=== PATIENT | male | born 1985 | race Caucasian/White ===

== ENCOUNTER 2017-03-13 13:56 | Emergency (ER) | payer MEDICAID, OTHER ==
[~2017-03-13] VITALS: Wt 74.0 kg
[2017-03-13] MEDS ORDERED: HC30CR25 TOP (14:32)
[2017-03-13] MEDS ORDERED: PRED20TA PO (14:32)
--- NOTE | 2017-03-13 14:39 | ERA ---
ER Documentation Chief Complaint Date/Time DATE: 03/13/17 TIME: 14:34 Chief Complaint POSSIBLE ALLERGIC REACTION TO R HAND HPI This is an otherwise healthy 31-year-old male presenting with a chief complaint of rash 2 weeks. Patient states that the rash is pruritic and on his hands have come and gone. Patient has tried Clotrimazole with no relief. Patient also has had a chronic rash on his ankles and under the armpits. Denies fever, rapid progression of symptoms, recent antibiotic use, symptomatic close contacts , diabetes, pain, history of skin opening or by. Patients vaccination status is up to date. No recent travel. Nursing notes have been reviewed and are consistent with history given. ROS All systems reviewed and are negative except as per history of present illness. Medications Home Meds Active Scripts Hydrocortisone* Topical (Hydrocortisone* Topical) 2.5%-28.3 Gm Cream..g., 1 APPLIC TOP BID, #1 TUB Prov:JUANA NAQVI PA-C 03/13/17 Prednisone* (Prednisone*) 20 Mg Tab, 40 MG PO DAILY for 4 Days, TAB Prov:JUANA NAQVI PA-C 03/13/17 PMhx/Soc History of Surgery: No Anesthesia Reaction: No Hx Neurological Disorder: No Hx Respiratory Disorders: No Hx Cardiac Disorders: No Hx Psychiatric Problems: No Hx Miscellaneous Medical Probl: No Hx Alcohol Use: No Hx Substance Use: No Hx Tobacco Use: No Smoking Status: Never smoker Physical Exam Vitals Vital Signs Date Time Temp Pulse Resp B/P Pulse Ox O2 Delivery O2 Flow Rate FiO2 03/13/17 14:02 98.0 80 18 141/77 0 Physical Exam Const: Healthy-appearing. Well-nourished. Well-developed. No acute distress. Skin: [place] wheals on the hands bilaterally with mild swelling. Confide rash on the posterior ankles around the Achilles tendon bilaterally most consistent with psoriasis. Ext: No palpable cord. Normal movement of all extremities grossly observed. Neur: Awake, alert and oriented x3. Neurovascularly intact bilaterally. Oral: No oral edema visualized. Mucous membranes moist and pink. Head: Normocephalic, Atraumatic. Eyes: Non-injected; No discharge. EOMI and MARYBETH bilaterally. Ears: Normal External Ears, EACs clear, TM normal bilaterally without erythema. Nose: Normal external nose; no discharge, or sinus tenderness. Neck: No cervical lymphadenopathy, masses or goiter palpated. ~ No meningismus. Pulm: Good air movement in upper and lower respiratory tracts. No dyspnea, stridor, tripoding or drooling. Clear to auscultation bilaterally. Cardio: Regular rate and rhythm; No murmurs, gallops or rubs auscultated. No JVD grossly observed. No cyanosis. Capillary refill less than 2 seconds. Abd: Soft, non tender, non distended. No guarding, masses. Normal bowel sounds. MS: Normal motor strength, normal tone with gross examination. Back: No midline, flank or CVA tenderness. Psych: Normal Mood and Affect. Procedures/MDM 31-year-old otherwise healthy male presenting with a chief complaint of rash 2 weeks. Patient has an unknown trigger but symptoms and signs are most consistent with allergic reaction versus contact dermatitis. Patient also has another chronic rash on the ankles is most consistent with psoriasis. At this time of little suspicion for fungal or bacterial involvement as the patient has tried clotrimazole without improvement. I also have little suspicion for endangerment of the airway or cardiac involvement. Will go ahead and prescribe the patient oral prednisone 4 days and topical hydrocortisone. I have spoke with the patient regarding their condition and future management. They have verbally responded that they understand their status and treatment plan. The patients vitals are stable, and their current condition is appropriate for discharge. The patient will be given discharge instructions with return precautions. Departure Diagnosis: Primary Impression: Allergic reaction Qualified Code: T78.40XA - Allergic reaction, initial encounter Additional Impression: Contact dermatitis Qualified Code: L25.9 - Contact dermatitis, unspecified contact dermatitis type, unspecified trigger Condition: Stable Patient Instructions: Contact Dermatitis Additional Instructions: Shawn un seguimiento con hassan PCP dentro de los prximos 1-3 see para linda evaluaci n ms completa y linda posible derivacin a un especialista. Devuelva el departamento de emergencia inmediatamente si los sntomas empeoran o cambian. Si tiene alguna pregunta con respecto a los medicamentos, consulte con hassan farmac utico o con nosotros antes de salir. Si se producen reacciones adversas mientras christie colette medicamentos, suspenda el tratamiento y regrese inmediatamente al servicio de urgencias. [facility] colette medicamentos segn las indicaciones y complete el curso completo del tratamiento. JUANA NAQVI PA-C Mar 13, 2017 14:39
== END 2017-03-13 14:44 | disposition home or self-care (01) ==
LOC: FTE 13:56
DX: L23.9 Allergic contact dermatitis, unspecified cause (principal)
CPT/HCPCS: 99284

== ENCOUNTER 2018-01-17 16:07 | Emergency (ER) | END 2018-01-17 17:58 | disposition home or self-care (01) ==

== ENCOUNTER 2018-05-21 11:27 | Emergency (ER) | END 2018-05-21 14:07 | disposition home or self-care (01) ==

== ENCOUNTER 2018-10-02 09:29 | Inpatient (IN) | payer MEDICAID ==
[~2018-10-02] VITALS: Ht 175.3 cm; Wt 89.8 kg
[~2018-10-02 09:29] MED LIST: AMOX1TAB10 PO; HC30CR25 TOP; HYDR-4011 PO; IBUP-1542 PO; NAPR-985 PO; PRED20TA PO
[2018-10-02] MEDS ORDERED: LIDOCAINE 1% (MPF) 5 ML VIAL INFIL ONE (10:30)
[2018-10-02] MEDS ORDERED: CEFTRIAXONE 1 GM/50 ML (PMX) 50 ML IVPB ONE (13:30)
[2018-10-02] MEDS ORDERED: SOD CHLORIDE 0.9% 1,000 ML IV ONE (13:30)
[2018-10-02] MEDS ORDERED: VANCOMYCIN 1 GM (PMX) 250 ML IVPB ONE (13:30)
--- NOTE | 2018-10-02 14:27 | ERD ---
ER Documentation Chief Complaint Chief Complaint lt wrist pain HPI 33-year-old male presents for left forearm pain times 3 weeks. Patient states that he had a fall few weeks ago when he had left wrist and left ankle fracture which was casted. He subsequently developed left forearm swelling which was thought to be due to use of crutches. He however states that the swelling has not gone away. The left forearm is developing some erythema. Denies any fevers or chills. He states he has 6 out of 10 pain. ROS All systems reviewed and are negative except as per history of present illness. Medications Home Meds Active Scripts Ibuprofen* (Motrin*) 600 Mg Tab, 600 MG PO Q6, #30 TAB Prov:TANIYA HERNANDEZ PA-C 05/21/18 Naproxen* (Naprosyn*) 500 Mg Tablet, 500 MG PO BID PRN for PAIN AND/OR INFLAMMATION, #30 TAB Prov:BEE HOOVER PA-C 01/17/18 Hydrocodone/Acetaminophen ([place] 5-325 Tablet) 1 Each Tablet, 1 TAB PO Q6H PRN for PAIN, #7 TAB Prov:BEE HOOVER PA-C 01/17/18 Amoxicillin/Potassium Clav (Amox-Clav 875-125 mg Tablet) 875-125 mg Tab, 1 TAB PO BID for 10 Days, #20 TAB Prov:BEE HOOVER PA-C 01/17/18 Hydrocortisone* Topical (Hydrocortisone* Topical) 2.5%-28.3 Gm Cream..g., 1 APPLIC TOP BID, #1 TUB Prov:JUANA NAQVI PA-C 03/13/17 Prednisone* (Prednisone*) 20 Mg Tab, 40 MG PO DAILY for 4 Days, TAB Prov:JUANA NAQVI PA-C 03/13/17 Allergies Allergies: Coded Allergies: No Known Allergy (Unverified , 10/02/18) PMhx/Soc Medical and Surgical Hx: pt denies Medical Hx, pt denies Surgical Hx History of Surgery: No Anesthesia Reaction: No Hx Neurological Disorder: No Hx Respiratory Disorders: No Hx Cardiac Disorders: No Hx Psychiatric Problems: No Hx Miscellaneous Medical Probl: No Hx Alcohol Use: Yes (occassional) Hx Substance Use: No Hx Tobacco Use: No Smoking Status: Former smoker Physical Exam Vitals Vital Signs Date Temp Pulse Resp B/P (MAP) Pulse Ox O2 O2 Flow FiO2 Time Delivery Rate 10/02/18 98.3 83 18 167/96 98 09:31 (119) Physical Exam Const: No acute distress Neck: Full range of motion. No meningismus. Resp: Clear to auscultation bilaterally Cardio: Regular rate and rhythm, no murmurs, cap refills less than 2 seconds in all fingers of left hand Abd: Soft, non tender, non distended. Normal bowel sounds Skin: No petechiae or rashes Back: No midline or flank tenderness Ext: Left forearm mass about 2cm with erythema and underlying fluctuance Neur: Awake and alert, lateral upper extremity sensation intact, left hand sensation intact Psych: Normal Mood and Affect Result Diagram: 10/02/18 1334 10/02/18 1334 Results 24 hrs Laboratory Tests Test 10/02/18 13:34 White Blood Count 9.2 10^3/ul Red Blood Count 5.87 10^6/ul Hemoglobin 16.7 g/dl Hematocrit 49.5 % Mean Corpuscular Volume 84.3 fl Mean Corpuscular Hemoglobin 28.4 pg Mean Corpuscular Hemoglobin Concent 33.7 g/dl Red Cell Distribution Width 13.5 % Platelet Count 293 10^3/UL Mean Platelet Volume 10.7 fl Immature Granulocytes % 0.400 % Neutrophils % 48.5 % Lymphocytes % 41.1 % Monocytes % 8.8 % Eosinophils % 0.8 % Basophils % 0.4 % Nucleated Red Blood Cells % 0.0 /100WBC Immature Granulocytes # 0.040 10^3/ul Neutrophils # 4.5 10^3/ul Lymphocytes # 3.8 10^3/ul Monocytes # 0.8 10^3/ul Eosinophils # 0.1 10^3/ul Basophils # 0.0 10^3/ul Nucleated Red Blood Cells # 0.0 10^3/ul Sodium Level 142 mmol/L Potassium Level 4.1 mmol/L Chloride Level 98 mmol/L Carbon Dioxide Level 28 mmol/L Anion Gap 16 Blood Urea Nitrogen 13 mg/dl Creatinine 0.89 mg/dl Est Glomerular Filtrat Rate mL/min > 60 mL/min Glucose Level 94 mg/dl Calcium Level 10.0 mg/dl Total Bilirubin 0.3 mg/dl Direct Bilirubin 0.00 mg/dl Indirect Bilirubin 0.3 mg/dl Aspartate Amino Transf (AST/SGOT) 31 IU/L Alanine Aminotransferase (ALT/SGPT) 26 IU/L Alkaline Phosphatase 105 IU/L C-Reactive Protein < 0.5 mg/dl Total Protein 9.5 g/dl Albumin 5.0 g/dl Globulin 4.50 g/dl Albumin/Globulin Ratio 1.11 Current Medications Medications Dose Sig/Brianne Start Time Status Last (Trade) Ordered Route PRN Stop Time Admin Dose Reason Admin Lidocaine 5 ml ONCE ONCE 10/02/18 DC (Xylocaine INFIL 10:30 1% (Mpf)) 10/02/18 10:31 Ceftriaxone 50 ml @ ONCE ONCE 10/02/18 DC 10/02/18 Sodium 100 mls/hr IVPB 13:30 13:56 10/02/18 13:59 Vancomycin 250 ml @ ONCE ONCE 10/02/18 DC 10/02/18 HCl 125 mls/hr IVPB 13:30 14:29 10/02/18 15:29 Sodium 1,000 ml @ Q1H ONCE 10/02/18 DC 10/02/18 Chloride 1,000 mls/hr IV 13:30 13:57 10/02/18 14:29 Morphine 4 mg ONCE STAT 10/02/18 DC 10/02/18 Sulfate IV 14:40 15:17 (morphine) 10/02/18 14:41 Ondansetron 4 mg ONCE STAT 10/02/18 DC 10/02/18 HCl (Zofran IV 14:40 15:16 Inj) 10/02/18 14:41 Ondansetron 4 mg BRIDGE ORDER 10/02/18 HCl (Zofran PRN IV 15:30 Inj) NAUSEA/VOMITI 10/03/18 15:29 NG 650 mg ER BRIDGE 10/02/18 Acetaminophen PRN PO 15:30 (Tylenol .MILD PAIN 10/03/18 15:29 Tab) 1-3 OR TEMP Procedures/MDM Abscess Incision and Drainage with irrigation by me: Location: Left forearm Anesthesia: Local 1% Lidocaine Technique: Irrigated. Disrupted loculations w/ instrumentation Packing: None Complications: Neurovascularly intact post procedure Medical Decision Making: Differential diagnosis includes but not limited to left forearm abscess, osteomyelitis,contact dermatitis Patient appeared well on physical exam. Left forearm examination consistent with an abscess. Due to the size of the infection x-ray was ordered. The left forearm x-ray showed possibility of a bone infection versus abscess versus tumor CT of the forearm showed chronic osteomyelitis with radiocarpal joint effusion CBC: no e/o of systemic infection or severe anemia CMP: no e/o severe acidosis, alkalosis, renal failure, diabetic ketoacidosis, liver disease Blood cultures were ordered The abscess was incised and drained, see procedure note above. Wound culture of the abscess was sent to lab. Patient was started on IV fluids, pain medication and IV Rocephin and vancomycin for the osteomyelitis. Patient did not meet SIRS criteria, low suspicion for sepsis. Given need for IV antibiotics for osteomyelitis, contacted flying squad salesperson hospitalist team. Dr. Martinez agreed to admit patient for further management. Disclaimer: Inadvertent spelling and grammatical errors are likely due to EHR/dictation software use and do not reflect on the overall quality of patient care. Also, please note that the electronic time recorded on this note does not necessarily reflect the actual time of the patient encounter. Departure Diagnosis: Primary Impression: Osteomyelitis Osteomyelitis type: unspecified type Osteomyelitis location: radius Laterality: left Qualified Codes: M86.9 - Osteomyelitis, unspecified Additional Impression: Skin abscess Site of cutaneous abscess: extremity Site of cutaneous abscess of extremity: upper extremity Laterality: left Qualified Codes: L02.414 - Cutaneous abscess of left upper limb Condition: Serious CHIJUANA Oct 02, 2018 14:27
[2018-10-02] MEDS ORDERED: morphine 4 MG/ML VIAL IV STA (14:40)
[2018-10-02] MEDS ORDERED: ONDANSETRON 4 MG INJ IV STA (14:40)
[2018-10-02] MEDS ORDERED: ONDANSETRON 4 MG INJ IV PRN ×2 (15:30→17:00)
[2018-10-02] MEDS ORDERED: ACETAMINOPHEN 325 MG TAB PO PRN ×2 (15:30→17:00)
[2018-10-02 16:50] VITALS: Ht 175.3 cm; Wt 89.8 kg
[2018-10-02] MEDS ORDERED: NACL 0.9% 3 ML SYG IV SCH (17:00)
[2018-10-02] MEDS ORDERED: MAGNESIUM HYDROXIDE 30ML CUP PO PRN (17:00)
[2018-10-02] MEDS ORDERED: morphine 2 MG INJ IV PRN (17:00)
[2018-10-02] MEDS ORDERED: DOCUSATE SODIUM 100 MG CAP PO PRN (17:00)
[2018-10-02] MEDS ORDERED: BISACODYL (EC) 5 MG TAB PO PRN (17:00)
[2018-10-02 18:23] VITALS: BP 134/84; PULSE 85; RESP 18
--- NOTE | 2018-10-02 18:38 | HP ---
Date/Time of Note Date/Time of Note DATE: 10/02/18 TIME: 18:34 Assessment/Plan VTE Prophylaxis SCD contraindicated: low risk/ambulating Pharmacological prophylaxis: NA/contraindicated Pharm contraindication: surgical contra Lines/Catheters IV Catheter Type (from Nrsg): [place] Urinary Cath still in place: No Assessment/Plan Hospital Course CC: Lt wrist infection [place] fell off roof 4 months ago. fracture fixed & hardware removed 2 months ago at [facility]/ [facility]. still using crutches, area became red? asked to take motrin. over the last few days, worse. yesterday- pus. no generalized symptoms. PMH Lt Rad fracture- not compound PSH Lt Radius surgery SH no substances FH Dm; no CAD, cancer, stroke ROS n-no syncope loss of speech vision c-no chest pain dyspnea edema p-no cough no wheezing no fever gi-no pain nausea vomiting or diarrhea gu-no dysuria hematuria fever ms + left arm pain swelling no peripheral edema or itching endo-no diabetes thyroid dysfunction or dyslipidemia psy-has a stable mood without significant agitation anxiety depression h-no hematochezia melena hematuria con-fevers no chills or weight loss that I am aware of PE no pallor/adenopathy reg s1s2 no mrg ctab bs+ nt nd; no rrr no edema; lt wrist- dimish rom; no adenopathy A/P 1) Lt wrist cellulitis; possible abscess. stable consult ortho. may need plastic/ hand surgery teritary referral Result Diagram: 10/02/18 1334 10/02/18 1334 Results 24hrs Laboratory Tests Test 10/02/18 13:34 10/02/18 15:45 10/02/18 15:53 White Blood Count 9.2 Red Blood Count 5.87 Hemoglobin 16.7 Hematocrit 49.5 Mean Corpuscular Volume 84.3 Mean Corpuscular Hemoglobin 28.4 L Mean Corpuscular Hemoglobin Concent 33.7 Red Cell Distribution Width 13.5 Platelet Count 293 Mean Platelet Volume 10.7 H Immature Granulocytes % 0.400 Neutrophils % 48.5 Lymphocytes % 41.1 Monocytes % 8.8 Eosinophils % 0.8 Basophils % 0.4 Nucleated Red Blood Cells % 0.0 Immature Granulocytes # 0.040 H Neutrophils # 4.5 Lymphocytes # 3.8 H Monocytes # 0.8 Eosinophils # 0.1 Basophils # 0.0 Nucleated Red Blood Cells # 0.0 Erythrocyte Sedimentation Rate 15 Sodium Level 142 Potassium Level 4.1 Chloride Level 98 Carbon Dioxide Level 28 Anion Gap 16 H Blood Urea Nitrogen 13 Creatinine 0.89 Est Glomerular Filtrat Rate mL/min > 60 Glucose Level 94 Calcium Level 10.0 Total Bilirubin 0.3 Direct Bilirubin 0.00 Indirect Bilirubin 0.3 Aspartate Amino Transf (AST/SGOT) 31 Alanine Aminotransferase (ALT/SGPT) 26 Alkaline Phosphatase 105 C-Reactive Protein < 0.5 Total Protein 9.5 H Albumin 5.0 H Globulin 4.50 H Albumin/Globulin Ratio 1.11 POC Venous Lactate 0.3 L 1.5 HPI/ROS Admit Date/Time Admit Date/Time Oct 02, 2018 at 15:28 PMH/Family/Social Past Medical History Medications Current Medications Sodium Chloride 1,000 ml @ 100 mls/hr Q10H IV ; Start 10/02/18 at 17:00 IV Flush (NS 3 ml) 3 ml PER PROTOCOL IV ; Start 10/02/18 at 17:00 Ondansetron HCl (Zofran Inj) 4 mg Q6H PRN IV NAUSEA/VOMITING; Start 10/02/18 at 17:00 Acetaminophen (Tylenol Tab) 650 mg Q6H PRN PO .PAIN 1-3 OR TEMP; Start 10/02/18 at 17:00 Morphine Sulfate (morphine) 2 mg Q4H PRN IV .SEVERE PAIN 7-10; Start 10/02/18 at 17:00 Docusate Sodium (Colace) 100 mg Q12H PRN PO .CONSTIPATION; Start 10/02/18 at 17:00 Magnesium Hydroxide (Milk Of Mag) 30 ml DAILY PRN PO .CONSTIPATION; Start 10/02/18 at 17:00 Bisacodyl (Dulcolax) 5 mg DAILY PRN PO .CONSTIPATION; Start 10/02/18 at 17:00 Enoxaparin Sodium (Lovenox) 40 mg DAILY SC ; Start 10/03/18 at 09:00 Coded Allergies: No Known Allergy (Unverified , 10/02/18) Social History Smoking Status: Former smoker Exam/Review of Systems Vital Signs Vitals Vital Signs Date Temp Pulse Resp B/P (MAP) Pulse Ox O2 O2 Flow FiO2 Time Delivery Rate 10/02/18 98.5 85 18 134/84 97 18:23 (101) 10/02/18 Room Air 15:59 ANGUS LOZADA MD Oct 02, 2018 18:38
[2018-10-02] MEDS: SOD CHLORIDE 0.9% 1,000 ML IV SCH (18:39)
[2018-10-02] MEDS ORDERED: VANCOMYCIN IV PER PHARMACY XX SCH (19:00)
[2018-10-02 19:50] VITALS: BP 130/77; PULSE 101; RESP 18
[2018-10-02] MEDS: PIPER-TAZO 3.375 GM IV (PMX) 100 ML IVPB SCH ×2 (20:50→23:36)
[2018-10-02 20:55] VITALS: BP 130/68; PULSE 89; RESP 16
[2018-10-02] MEDS: VANCOMYCIN 1 GM 250 ML IVPB SCH (22:20)
[2018-10-03 01:56] VITALS: BP 104/55; PULSE 79; RESP 16
[2018-10-03] MEDS: PIPER-TAZO 3.375 GM IV (PMX) 100 ML IVPB SCH ×3 (05:02→18:17)
[2018-10-03] MEDS: VANCOMYCIN 1 GM 250 ML IVPB SCH ×2 (05:40→15:23)
[2018-10-03] MEDS: SOD CHLORIDE 0.9% 1,000 ML IV SCH ×2 (05:51→11:04)
[2018-10-03 07:35] VITALS: BP 118/70; PULSE 69; RESP 20
[2018-10-03] MEDS ORDERED: ENOXAPARIN 40 MG/0.4 ML SYG SC SCH (09:00)
--- NOTE | 2018-10-03 14:08 | PN ---
Date/Time of Note Date/Time of Note DATE: 10/03/18 TIME: 14:07 Assessment/Plan VTE Prophylaxis Risk score (from Ns)>0 risk: 2 SCD applied (from Ns): Yes SCD contraindicated: low risk/ambulating Pharmacological prophylaxis: NA/contraindicated Pharm contraindication: surgical contra Lines/Catheters [facility] Peripheral IV Urinary Cath still in place: No Assessment/Plan Hospital Course A/P 1) Lt wrist cellulitis; possible abscess. stable consulted ortho; mri -P. may need plastic/ hand surgery teritary referral Subjective: No distress fever. O: Vital signs stable PE no pallor reg s1s2 no mrg ctab bs+ nt nd; no rrr no edema; lt wrist- dimish rom Result Diagram: 10/03/1853610/03/18536 Results 24hrs Laboratory Tests Test 10/02/18 15:45 10/02/18 15:53 10/03/18 05:37 POC Venous Lactate 0.3 L 1.5 White Blood Count 6.2 # Red Blood Count 4.70 Hemoglobin 13.4 L Hematocrit 40.8 L Mean Corpuscular Volume 86.8 Mean Corpuscular Hemoglobin 28.5 L Mean Corpuscular Hemoglobin Concent 32.8 Red Cell Distribution Width 13.5 Platelet Count 248 Mean Platelet Volume 11.0 H Immature Granulocytes % 0.300 Neutrophils % 48.7 Lymphocytes % 38.6 Monocytes % 11.0 Eosinophils % 1.1 Basophils % 0.3 Nucleated Red Blood Cells % 0.0 Immature Granulocytes # 0.020 Neutrophils # 3.0 Lymphocytes # 2.4 Monocytes # 0.7 Eosinophils # 0.1 Basophils # 0.0 Nucleated Red Blood Cells # 0.0 Sodium Level 141 Potassium Level 4.2 Chloride Level 104 Carbon Dioxide Level 25 Anion Gap 12 Blood Urea Nitrogen 15 Creatinine 0.94 Est Glomerular Filtrat Rate mL/min > 60 Glucose Level 104 Hemoglobin A1c 5.5 Calcium Level 8.8 Total Bilirubin 0.1 L Direct Bilirubin 0.00 Indirect Bilirubin 0.1 Aspartate Amino Transf (AST/SGOT) 19 Alanine Aminotransferase (ALT/SGPT) 28 Alkaline Phosphatase 81 Total Protein 7.0 # Albumin 3.6 # Globulin 3.40 H Albumin/Globulin Ratio 1.05 Thyroid Stimulating Hormone (TSH) 2.490 Exam/Review of Systems Exam Vitals Vital Signs Date Temp Pulse Resp B/P (MAP) Pulse Ox O2 O2 Flow FiO2 Time Delivery Rate 10/03/18 98.4 69 20 118/70 98 07:35 (86) 10/02/18 Room Air 15:59 Intake and Output 10/02/18 10/02/18 10/03/18 1515:00 23:00 07:00 IntakeIntake Total 1050 ml 830 ml 1250 ml OutputOutput Total 500 ml BalanceBalance 1050 ml 330 ml 1250 ml Results Results 24hrs Laboratory Tests Test 10/02/18 15:45 10/02/18 15:53 10/03/18 05:37 POC Venous Lactate 0.3 L 1.5 White Blood Count 6.2 # Red Blood Count 4.70 Hemoglobin 13.4 L Hematocrit 40.8 L Mean Corpuscular Volume 86.8 Mean Corpuscular Hemoglobin 28.5 L Mean Corpuscular Hemoglobin Concent 32.8 Red Cell Distribution Width 13.5 Platelet Count 248 Mean Platelet Volume 11.0 H Immature Granulocytes % 0.300 Neutrophils % 48.7 Lymphocytes % 38.6 Monocytes % 11.0 Eosinophils % 1.1 Basophils % 0.3 Nucleated Red Blood Cells % 0.0 Immature Granulocytes # 0.020 Neutrophils # 3.0 Lymphocytes # 2.4 Monocytes # 0.7 Eosinophils # 0.1 Basophils # 0.0 Nucleated Red Blood Cells # 0.0 Sodium Level 141 Potassium Level 4.2 Chloride Level 104 Carbon Dioxide Level 25 Anion Gap 12 Blood Urea Nitrogen 15 Creatinine 0.94 Est Glomerular Filtrat Rate mL/min > 60 Glucose Level 104 Hemoglobin A1c 5.5 Calcium Level 8.8 Total Bilirubin 0.1 L Direct Bilirubin 0.00 Indirect Bilirubin 0.1 Aspartate Amino Transf (AST/SGOT) 19 Alanine Aminotransferase (ALT/SGPT) 28 Alkaline Phosphatase 81 Total Protein 7.0 # Albumin 3.6 # Globulin 3.40 H Albumin/Globulin Ratio 1.05 Thyroid Stimulating Hormone (TSH) 2.490 Medications Medication Current Medications Sodium Chloride 1,000 ml @ 100 mls/hr Q10H IV Last administered on 10/03/18at 11:04; Admin Dose 100 MLS/HR; Start 10/02/18 at 17:00 IV Flush (NS 3 ml) 3 ml PER PROTOCOL IV ; Start 10/02/18 at 17:00 Ondansetron HCl (Zofran Inj) 4 mg Q6H PRN IV NAUSEA/VOMITING; Start 10/02/18 at 17:00 Acetaminophen (Tylenol Tab) 650 mg Q6H PRN PO .PAIN 1-3 OR TEMP; Start 10/02/18 at 17:00 Morphine Sulfate (morphine) 2 mg Q4H PRN IV .SEVERE PAIN 7-10; Start 10/02/18 at 17:00 Docusate Sodium (Colace) 100 mg Q12H PRN PO .CONSTIPATION; Start 10/02/18 at 17:00 Magnesium Hydroxide (Milk Of Mag) 30 ml DAILY PRN PO .CONSTIPATION; Start 10/02/18 at 17:00 Bisacodyl (Dulcolax) 5 mg DAILY PRN PO .CONSTIPATION; Start 10/02/18 at 17:00 Enoxaparin Sodium (Lovenox) 40 mg DAILY SC Last administered on 10/03/18at 09:15; Admin Dose 40 MG; Start 10/03/18 at 09:00 Vancomycin HCl (Vanco Iv Per Pharmacy) VANCOMYCIN PER PHARMACY PER PROTOCOL XX ; Start 10/02/18 at 19:00 Piperacillin Sod/ Tazobactam Sod 100 ml @ 200 mls/hr Q6 IVPB Last administered on 10/03/18at 12:37; Admin Dose 200 MLS/HR; Start 10/02/18 at 20:00 Vancomycin HCl 250 ml @ 125 mls/hr Q8 IVPB Last administered on 10/03/18at 05:40; Admin Dose 125 MLS/HR; Start 10/02/18 at 22:00 Influenza Virus Vaccine Quadrival (Fluzone) 0.5 ml ONCE ONCE IM* ; Start 10/05/18 at 10:00; Stop 10/05/18 at 10:01 ANGUS LOZADA MD Oct 03, 2018 14:08
[2018-10-03 15:24] VITALS: BP 120/67; PULSE 72; RESP 20
[2018-10-03 20:42] VITALS: BP 159/94; PULSE 86; RESP 18
[2018-10-03] MEDS ORDERED: VANCOMYCIN HCL 1.25 GM in SOD CHLORIDE 0.9% 250 ML IVPB SCH (22:00)
--- NOTE | 2018-10-04 01:12 | CONS ---
DATE OF ADMISSION: 10/02/2018 DATE OF CONSULTATION: HISTORY OF PRESENT ILLNESS: The patient is a 33-year-old right-handed male who was admitted on 10/02 when he came to the emergency room complaining of painful swelling involving his left wrist and forearm. He obviously had a fracture involving his left wrist and left ankle about 4 months ago fol lowing a fall. At that time, he was taken to the [facility] and was treated with the cast im mobilization of the left ankle and a surgical procedure over his left wrist. According to the patien t description, there was open reduction and pin fixation, which was removed 6 weeks postop. Fo llowing the surgical procedures in his left wrist, he has been suffering from chronic pain which he w as attributed to the crutch gait initially; however, he was persistently having pain and discomfort a nd because of the increasing pain with swelling, he showed up to the emergency room on the day of his admission. According to available records, an I and D of the small abscess was carried out involvin g the left forearm and initial diagnostic evaluation revealed a possible infection of the bone brought this abscess along with the presence of a lytic lesion on the dorsal radial diaphysis suggest vladislav of osteomyelitis. PHYSICAL EXAMINATION: My examination revealed a 33-year-old male who does not appear to be sick at t his time. He is afebrile and there was no leukocytosis. There was tenderness and swelling over the left forearm and wrist. The MRI scan of the right forearm and wrist, findings of extensive osteomyel itis involving the left radius. DIAGNOSTIC IMPRESSION: Osteomyelitis of the left wrist, postoperative, recommendations for managemen t because of the involvement of the left wrist joint along with the osteomyelitis of the left radius. We will need a hand surgeon who is willing to take this patient and there are no hand surgeon avail able at this time and this patient will need a transfer to the major medical center, probably to [facility] where the initial surgery was done for the higher level of care as soon as possible. Dictated By: JENNIFER TINSLEY MD IK/NTS Conf#: [id number] DID#: [id number] CC: ANGUS LOZADA MD;*EndCC*
--- NOTE | 2018-10-04 09:44 | DS ---
Date/Time of Note Date/Time of Note DATE: 10/04/18 TIME: 09:39 Discharge Summary Admission/Discharge Info Admit Date/Time Oct 02, 2018 at 15:28 Discharge Date/Time Oct 03, 2018 at 21:00 Patient Condition: Stable Consults Dr Jessica Torres Procedures XR forearm CLINICAL INDICATION: Left forearm swelling TECHNIQUE: AP and lateral views of the left forearm COMPARISON: None FINDINGS: Mineralization is intact. There is a 1.3 x 0.6 cm cortically based oval lucency in the dorsal distal radius diaphysis with surrounding sclerosis. There is prominent soft tissue swelling in the distal dorsal forearm adjacent to this region with faint mineralization. There is also volar sided smooth periosteal reaction. There is diffuse soft tissue swelling in the mid and proximal forearm also noted. Mild IMPRESSION: 1. Cortically based oval lytic lesion in the dorsal distal radius diaphysis with surrounding sclerosis and adjacent large soft tissue swelling with faint mineralization along with smooth periosteal reaction in the volar cortex, and additional mid and proximal forearm soft tissue swelling. 2. Findings may represent infection/Cisco's abscess and adjacent soft tissue infection in the right clinical setting. Tumor is not excluded, especially if there is no clinical concern for infection. Recommend MRI for further evaluation. CT left forearm FINDINGS: There is focal chronic dorsal cortical defect /cloaca in the distal diaphysis of the radius with prominent circumferential periosteal reaction. There is medullary lucency in this region as well as presence of osseous sequestrum measuring 11 x 3 x 3 mm (CC by AP by TV). There is diffuse adjacent soft tissue edema/swelling with internal mineralization, extending superficially to the dorsal skin with marked skin thickening in the dorsal distal forearm. There is diffuse skin thickening and subcutaneous edema/soft tissue swelling extending proximally and distally. Likely radiocarpal joint effusion. IMPRESSION: 1. Chronic osteomyelitis of the distal radius diaphysis with dorsal cortical decompression/defect/cloaca containing an 11 mm osseous sequestrum, and with dorsal decompression of infection with diffuse significant soft tissue inflammation/ phlegmon with mineralization extending superficially to the dorsal distal forearm skin with prominent skin thickening. 2. Radiocarpal joint effusion. 3. MRI may be obtained to evaluate extent of osseous and soft tissue disease. RPTAT: BBDD MRI LT FOREARM MPRESSION: 1. Evidence of osteomyelitis at the distal radius with a marked amount of bone marrow infiltration about the distal radial diaphysis partially extending beyond the field of view and to the radial styloid distally. There is also an osseous sequestrum dorsal measuring up to 1 cm along with a sinus tract extending dorsally to the cortex and into the subcutaneous soft tissues with an associated 1.0 x 3.5 x 2.0 cm subcutaneous abscess. 2. Small radiocarpal joint effusion. Early extension of the infection into the joint/early septic arthritis is not entirely excluded. 3. Associated findings of cellulitis about the distal forearm. Hx of Present Illness 33yr M w lt wrist/ forearm infection Hospital Course A/P 1) Lt wrist cellulitis, possible OM. stable consulted ortho; mri noted. may need plastic/ hand surgery/ teritary referral. Left AMA. 2) [place] [facility] [place] No Active Prescriptions or Reported Meds Primary Care Provider Care Physician No Primary Time spent on discharge: < 30 minutes Pending Labs Laboratory Tests Test 10/03/18 13:37 Vancomycin Level Trough 10.4 ug/ml (10.0-20.0) ANGUS LOZADA MD Oct 04, 2018 09:44
--- NOTE | 2018-10-04 10:42 | DS ---
Discharge Summary Admission/Discharge Info Admit Date/Time Discharge Date/Time Home Meds No Active Prescriptions or Reported Meds Primary Care Provider Pending Labs SINGH JIMENEZ NP Oct 04, 2018 10:42
== END 2018-10-03 21:00 | disposition left against medical advice (07) | DRG 540 ==
LOC: FTE 09:29 → 2NE 15:28
PROVIDERS: ADMIT Internal Medicine; ATTEND Internal Medicine
DX: M86.8X3 Other osteomyelitis, forearm (principal); L03.114 Cellulitis of left upper limb; M25.422 Effusion, left elbow
CPT/HCPCS: 36415; 73090; 73200; 73221; 80053; 80202; 83036; 83605; 84145; 84443; 85025; 85651; 86140; 87040; 87070; 93005; 96365; 96367; 96375; J0696; J1650; J2270; J2405; J2543; J3370; J7030; J7050